=== PATIENT | male | born 1945 | race Caucasian/White ===

== ENCOUNTER → 2017-10-30 | Outpatient (CLI) | payer OTHER | LOC: FIMAGING 07:54 | PROVIDERS: ATTEND Family Medicine Geriatric Medicine | DX: G31.84 Mild cognitive impairment of uncertain or unknown etiology (principal) ==

== ENCOUNTER 2019-03-11 15:15 | Emergency (ER) | payer OTHER, BC ==
[2019-03-11] MEDS ORDERED: NS 1,000 ML IV ONE (15:49)
[2019-03-11 15:56] LABS: PLATELET COUNT 187 10^3/uL (150-400)
--- NOTE | 2019-03-11 16:00 | EDPHY ---
General Time Seen by Provider: 03/11/19 15:23 Narrative: CLINICAL IMPRESSION: Confusion ASSESSMENT/PLAN: Very pleasant 73-year-old male with a relatively recent diagnosis of Alzheimer' s dementia followed by the [facility] presents to the emergency department by ambulance after police felt he was more confused after having locked himself out of his house and unable to get back in and then accusing people of stealing their blood bank attendant. Patient's is at bedside on arrival. She states he is at his baseline level of mental status and does not appear increasingly confused. patient is cooperative and not agitated. He has physically been otherwise well and has no complaints in the ED. He and his have declined imaging of the brain. Lab work does not reveal any significant abnormality including leukocytosis, renal insufficiency, electrolyte imbalance, metabolic disturbance, or severe dehydration. EKG shows sinus bradycardia, reviewed with Dr. Angelo, please see his interpretation. Patient has no complaints of chest pain or shortness of breath. They met with case management regarding resources for additional home help. They will follow up with his primary neurologist at the [facility]. Warning signs return to ED sooner discussed and discharge. DIFFERENTIAL DX: Differential diagnosis including but not limited to hypoglycemia, infectious process, electrolyte abnormality, head injury and intoxicants ED PROCEDURES: See lab and/or imaging results below ED COURSE: 4:15pm: Discussed with Dr. Angelo. EKG reviewed with ED attending. No acute findings. Labs reviewed, no leukocytosis, electrolyte imbalance or ARF. Patient and are refusing head imaging. IV fluids given. Plan to d/c and f/ u with PCP and neurology as outpatient. CM met with patient and family in ED for outpatient home health resources CHIEF COMPLAINT: Confusion HPI: 73-year-old male with a relatively recent diagnosis of Alzheimer's disease in May of 2018, followed by [facility], presents to the emergency department by ambulance today with vague complaints of increased confusion. Patient's is at bedside on arrival. She is not entirely clear why the patient was brought to the hospital. According to EMS, the patient contacted share of several times today after he apparently change the code on the lock to his home and could not remember what the code was and therefore was having trouble getting back inside. He apparently also reported that their blood bank attendant had been stolen today which it had not been. Patient's reports she left at 9:00 a.m. This morning to run errands. She does report requesting someone to come give them a bid on the deck and the patient states that someone came to look at the deck and he thought that it was very fishy and seemed like a con. Patient states he does not remember calling the ambulance and is not sure who called. He does not recollect falling outside. He has no physical complaints. His reports that 1-2 weeks ago, his Aricept was stopped and Zoloft was increased from 100-150 mg. His states for unclear reasons Aricept was stopped because the neurologist was "worried about a heart condition ". The patient and his report no past cardiac history. He has no complaints of chest pain or shortness of breath. He does not know what his baseline heart rate is and EMS was concerned by heart rate of 48. His does not feel he needs emergent imaging of his head. She believes he has not had anything to eat and not much to drink today. They do not have a follow-up appointment again until April PAST MEDICAL HISTORY: Alzheimer's dementia See nurse/triage notes for additional history if applicable Pertinent Past Surgical History: Appendectomy Family History: Noncontributory Social History: , at bedside REVIEW OF SYSTEMS: All other systems negative Constitutional: No fever, no chills, appetite change. Eyes: No discharge, vision change ENT: No sore throat, congestion, ear pain. Cardiovascular: No chest pain, no palpitations. Respiratory: No cough, no shortness of breath. Gastrointestinal: No abdominal pain, no vomiting, diarrhea. Genitourinary: No hematuria, dysuria, flank pain, pelvic pain Musculoskeletal: No back pain, joint swelling, joint pain, myalgias. Skin: No rashes, color change. Neurological: No headache, dizziness, weakness. Chronically demented PHYSICAL EXAM: General Appearance: Alert, oriented, appropriate, cooperative, NAD, confused well hydrated, non-toxic appearing, VSS, no hypoxia. reports he is at his baseline cognition HEENT: TMs are clear bilaterally no perforation or FB, no injection, no evidence of serous or mucopurulent otitis. No hemotympanum. No palpable scalp hematoma laceration or contusion Oropharynx clear is no erythema or exudates, no tonsillar hypertrophy or asymmetry. Dentition without abnormality. No facial asymmetry Eyes: [PERRLA, no acute vision change, nystagmus, swelling, discharge, pain or photosensitivity Neck: Supple, nontender, no lymphadenopathy, no midline pain, FROM, no meningismus. Respiratory: There are no retractions, lungs are clear to auscultation. Cardiac: Bradycardia normal rhythm, no murmurs or gallops. Gastrointestinal: Abdomen is soft, nontender, bowel sounds normal, no masses/ hernia, no rigidity, guarding or focal peritoneal findings. Neurological: Alert and oriented x 3, no limb ataxia, at baseline level of cognition according to his , DTR's intact, normal sensation and strength Skin: Warm, dry, no rashes, no nodules on palpation. Musculoskeletal: Extremities are symmetrical, full range of motion, no tenderness, deformity, swelling, or erythema. Psychiatric: Patient is oriented X 3, there is no agitation. MEDICAL DECISION MAKING: Patient was seen independently. Secondary supervising physician at time of evaluation was Dr. Angelo . Diagnosis: Confusion. New, requires workup Summary: See Assessment and Plan for summary of ED visit Clinical lab tests: ordered / reviewed. Independent visualization of images, tracing, or specimens: Yes. Decision to obtain medical records or history from someone other than the patient: Patient's Discussed patient with another provider: Dr. Angelo Patient Progress: Stable for discharge. - History Smoking Status: Former smoker - Objective Vital Signs: Initial Vital Signs Temperature (C) 36.6 C 03/11/19 15:22 Heart Rate 48 L 03/11/19 15:22 Respiratory Rate 18 03/11/19 15:22 Blood Pressure 141/69 H 03/11/19 15:22 O2 Sat (%) 98 03/11/19 15:22 O2 Delivery Mode Room Air Allergies/Adverse Reactions: No Known Allergies Allergy (Unverified 03/11/19 15:49) Home Medications: Medication Instructions Recorded Finasteride 03/11/19 Lovastatin 03/11/19 Sertraline HCl 03/11/19 Zoloft 100mg (*) 03/11/19 Laboratory Results: Laboratory Results 03/11/19 15:31 03/11/19 15:31 Medications Given: Discontinued Medications Sodium Chloride (Ns) 1,000 mls @ 0 mls/hr IV ONCE ONE; Wide Open PRN Reason: Protocol Stop: 03/11/19 15:50 Last Admin: 03/11/19 16:00 Dose: 1,000 mls Departure - Departure Disposition: Home, Routine, Self-Care Clinical Impression: Confusion Condition: Good Additional Instructions: DISCHARGE INSTRUCTIONS FROM YOUR DOCTOR Thank you for visiting our emergency department today. You were treated by a physician assistant store manager today and your case was reviewed with our ED Attending physician. Please keep in mind that discharge from the emergency department does not mean that there is nothing wrong - it simply means that we have not identified an emergency condition that requires further evaluation or treatment in the hospital. You should always plan to follow up with primary care for re- evaluation of your condition in the next 2-3 days. If you have been referred to a specialist, please call as soon as possible (today or tomorrow) to schedule your follow up appointment at the appropriate time. DIAGNOSTIC WORKUP IN THE EMERGENCY DEPARTMENT INCLUDED EKG AND LAB WORK. YOU HAVE DECLINED CT IMAGING OF THE HEAD. YOU HAD A MILDLY ELEVATED BUN BUT NORMAL KIDNEY FUNCTIONS, NO ABNORMAL ELECTROLYTES, AND A NORMAL CBC WITH NO ELEVATION IN INFECTION FIGHTING COUNT. WE RECOMMEND THAT YOU FOLLOW UP WITH YOUR PRIMARY CARE AND NEUROLOGIST. OUR ENVIRONMENTAL HEALTH TECHNICIAN MET WITH YOU THIS EVENING TO DISCUSS HOME CARE OPTIONS. PLEASE RETURN TO THE EMERGENCY DEPARTMENT FOR INCREASED CONFUSION FROM BASELINE, CHEST PAIN OR SHORTNESS OF BREATH, WEAKNESS, FEVER, VOMITING, OR ANY OTHER CONCERN. People present with illnesses and injuries in different ways, and it is always possible that we have missed something. You may always return for re-evaluation if symptoms worsen or if they are not improving or if you develop new/different symptoms. Again, thank you for choosing our emergency department. We hope that you feel better. Referrals: Patient,NotPresent [Unknown] - As per Instructions (FOLLOW UP WITH NEUROLOGIST AT [facility] )
--- NOTE | 2019-03-11 16:19 | CPEKG ---
Test Reason : OPEN Blood Pressure : / mmHG Vent. Rate : 047 BPM Atrial Rate : 047 BPM P-R Int : 240 ms QRS Dur : 109 ms QT Int : 494 ms P-R-T Axes : -57 -39 066 degrees QTc Int : 437 ms Sinus or ectopic atrial bradycardia Prolonged WV interval Left axis deviation Confirmed by Bernarda Cabello ([id number]) on 03/11/2019 4:19:23 PM Referred By: BERNARDA CABELLO Confirmed By:Bernarda Cabello
[2019-03-11 17:28] VITALS: BP 135/78
--- NOTE | 2019-03-12 11:14 | ASMTCMCOM ---
CM Note CM Note Notes: This CM met with patient and his life partner, Shiela during patient's ER visit. See ER report for details and CM request. Shiela is interested in community resources as they are navigating their situation of patient's acute onset of Alzheimers. 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 Patient is followed by neurology at [facility] in [place]. Patient's presentation to the ER and the events which precipitated it have escalated concerns for naviagting and planning for safety, support, and even palliative care. Shiela explains that patient has an appointment with a new (chosen) PCP on Sunday, Dr. Pink who is a gerientologist specializing in Alzheimers and dementia. shiela is involved in a community alzheimers support group as well. Until the events that precipitated this ER visit, shiela has been comfortable leaving patient at home and is now realizing that she may need more support moving forward. This CM discussed the referral process for home health and other services such as [facility] Community care. Shiela was interested in learing more about palliative services, social work, and community care management or care coordination. Shiela is planning to reach out to [facility] services based on the experience of others in her support group and was interested in learning more about [facility] Community Care. This CM contatced Enedina at [facility] and asked her to reach out to Shiela to discuss their program as discussed with Shiela in the ER. This CM left a VM with Shiela this morning to assure her that someone from [facility] would be contacting her today and have provided ER CM contatc information for her as well. CM available to assist further prn Date Signed: 03/12/2019 11:13 AM Electronically Signed By:Emmy Valdivia RN
== END 2019-03-11 17:27 | disposition home or self-care (01) ==
LOC: EDBD → EDUNIT#
DX: R41.0 Disorientation, unspecified (principal); E86.9 Volume depletion, unspecified